=== PATIENT | female | born 1975 | race Caucasian/White ===

== ENCOUNTER 2018-12-31 17:48 | Emergency (ER) | payer MEDICAID ==
[~2018-12-31] VITALS: Ht 172.7 cm; Wt 83.0 kg
--- NOTE | ~2018-12-31 | EKG ---
[place], [place] ELECTROCARDIOGRAM REPORT NAME: ODIN DALE UNIT #: [id number] ROOM: DOCTOR: EPIPHANY DRAFT REPORT BIRTHDATE: [birth year] [facility] Test Date: 2018-12-31 Test Time: 18:41:56 Pat Name: ODIN DALE Department: Room: Gender: F Records Analyst: : 1975 Requested By: KRISTA BARCENAS PA-C Order Number: [id number] Reading MD: Bruce Kirby MD Measurements Intervals [place] Rate: 100 P: 61 IA: 151 QRS: 48 QRSD: 73 T: 22 QT: 327 QTc: 422 Interpretive Statements Sinus tachycardia Probable left atrial enlargement Electronically Signed On 01-06-2019 7:17:22 PDT by Bruce Kirby MD CM:EKGRPT:ELECTROCARDIOGRAM REPORT [id number] KRISTA BARCENAS PA-C EPIPHANY DRAFT REPORT KRISTA BARCENAS PA-C
[2018-12-31 18:46] LABS: BASO % 0.3 % (0.0-1.0); EOS # 0.3 10*3/uL (0.0-0.4); EOS % 3.7 % (1.0-4.0); HEMATOCRIT 37.1 % (37.0-47.0); LYMPH % 24.7 % (27.0-41.0); MEAN CELL VOLUME 91.2 fl (81.0-99.0); MEAN CORPUSCULAR HGB 29.5 pg (27.0-31.0); MEAN CORPUSCULAR HGB CONC 32.3 g/dl (33.0-37.0); MEAN PLATELET VOLUME 9.5 fl (9.6-12.3); MONO # 0.5 10*3/uL (0.1-1.0); MONO % 6.6 % (3.0-9.0); NEUT # 5.1 10*3/uL (2.3-7.9); NEUT % 64.4 % (47.0-73.0); PLATELET COUNT AUTOMATED 228 10*3/uL (130-400); RED BLOOD COUNT 4.07 10*6/uL (4.10-5.10); RED CELL DISTRI WIDTH 13.1 % (0-14.5); WHITE BLOOD COUNT 7.9 10*3/uL (4.8-10.8)
[2018-12-31 19:04] LABS: ALBUMIN 3.1 gm/dl (3.1-4.5); ALKALINE PHOSPHATASE 97 U/L (45-117); BUN 4 mg/dl (7-24); CHLORIDE 106 mmol/L (98-107); POTASSIUM 3.6 mmol/L (3.5-5.1); SGOT/AST 8 IU/L (3-35); SGPT/ALT 11 U/L (12-78); SODIUM 139 mmol/L (136-145); TOTAL PROTEIN 6.5 gm/dL (6.4-8.2)
[2018-12-31 19:07] LABS: TROPONIN I < 0.015 ng/ml (<0.045)
[2018-12-31] MEDS ORDERED: DELTASONE20 M1 PO (23:03)
[2018-12-31] MEDS ORDERED: TESSALON PERLE100 MG PO (23:03)
[2018-12-31] MEDS ORDERED: PROVENTIL HFA6.7 GM INH (23:03)
[2018-12-31] MEDS ORDERED: AVPAK AZITHROM250 MG PO (23:03)
== END 2018-12-31 23:22 | disposition home or self-care (01) ==
LOC: ED 17:48
PROVIDERS: Physician Assistant
DX: J20.9 Acute bronchitis, unspecified (principal); I50.9 Heart failure, unspecified; R11.10 Vomiting, unspecified; Z88.0 Allergy status to penicillin; Z88.6 Allergy status to analgesic agent; Z91.040 Latex allergy status; Z90.49 Acquired absence of other specified parts of digestive tract; Z98.51 Tubal ligation status

== ENCOUNTER 2019-01-06 21:09 | Inpatient (IN) | payer MEDICAID ==
[~2019-01-06] VITALS: Ht 172.7 cm; Wt 93.2 kg
[~2019-01-06 21:09] MED LIST: AVPAK AZITHROM250 MG PO; DELTASONE20 M1 PO; PROVENTIL HFA6.7 GM INH; TESSALON PERLE100 MG PO
[2019-01-06 21:12] VITALS: BP 119/77
[2019-01-06 22:05] LABS: BASO % 0.2 % (0.0-1.0); EOS # 0.1 10*3/uL (0.0-0.4); EOS % 0.6 % (1.0-4.0); HEMATOCRIT 36.1 % (37.0-47.0); HEMOGLOBIN 11.7 g/dl (12.0-16.0); LYMPH # 2.7 10*3/uL (1.3-4.4); LYMPH % 21.5 % (27.0-41.0); MEAN CELL VOLUME 91.6 fl (81.0-99.0); MEAN CORPUSCULAR HGB 29.7 pg (27.0-31.0); MEAN CORPUSCULAR HGB CONC 32.4 g/dl (33.0-37.0); MEAN PLATELET VOLUME 9.4 fl (9.6-12.3); MONO # 1.3 10*3/uL (0.1-1.0); MONO % 10.1 % (3.0-9.0); NEUT # 8.5 10*3/uL (2.3-7.9); PLATELET COUNT AUTOMATED 248 10*3/uL (130-400); RED BLOOD COUNT 3.94 10*6/uL (4.10-5.10); RED CELL DISTRI WIDTH 13.1 % (0-14.5); WHITE BLOOD COUNT 12.6 10*3/uL (4.8-10.8)
--- NOTE | 2019-01-06 22:13 | NUR ---
MEDICATED PER ORDERS. BLANKET PROVIDED AND DENIES ANY ADDITIONAL NEEDS. REMAINS AT BASELINE. WILL MONITOR.
[2019-01-06 22:19] LABS: ACT PARTIAL THROMBO TIME 28.7 SECONDS (20.0-32.1); INTERNATIONAL NORM RATIO 1.1 (2.0-3.5)
[2019-01-06 22:21] LABS: ALBUMIN 2.8 gm/dl (3.1-4.5); ALKALINE PHOSPHATASE 99 U/L (45-117); BUN 8 mg/dl (7-24); CHLORIDE 101 mmol/L (98-107); LIPASE 79 U/L (73-393); POTASSIUM 3.2 mmol/L (3.5-5.1); SGOT/AST 17 IU/L (3-35); SGPT/ALT 16 U/L (12-78); SODIUM 134 mmol/L (136-145)
[2019-01-06 22:23] LABS: TROPONIN I < 0.015 ng/ml (<0.045)
--- NOTE | 2019-01-06 23:05 | NUR ---
NURSE TO NURSE TO EZEQUIEL STONE.
--- NOTE | 2019-01-06 23:08 | NUR ---
REPORT FROM ROSAMARIA NIEVES AT THIS TIME
[2019-01-07 00:15] VITALS: BP 131/68
--- NOTE | 2019-01-07 00:15 | NUR ---
A 43, admitted to 5E, under the services of CATHERINE Azul DO with a diagnosis of SEPSIS. Chief complaint is SOB; COUGH; CONGESTION. Patient arrived via stretcher from ER. Monitor applied. Initial assessment completed. Vital signs taken and recorded. CATHERINE AZUL DO notified of admission to the unit. Orders received. See assessment for past medical history, medications and allergies. Patient and/or family oriented to unit. [facility] visitation policy reviewed. Clothing/patient valuable form completed. NASIMA GARCIA
--- NOTE | 2019-01-07 00:54 | NUR ---
MEDICATED WITH 2 TYLENOL FOR C/O RIB PAIN FROM COUGHING.
--- NOTE | 2019-01-07 06:00 | NUR ---
RESTING IN BED WITH EYES CLOSED. VOICES NO FURTHER C/O AT THIS TIME. CALL LIGHT WITHIN REACH.
[2019-01-07 06:27] LABS: BASO % 0.1 % (0.0-1.0); HEMATOCRIT 34.6 % (37.0-47.0); LYMPH # 0.8 10*3/uL (1.3-4.4); MEAN CELL VOLUME 91.3 fl (81.0-99.0); MEAN CORPUSCULAR HGB CONC 31.8 g/dl (33.0-37.0); MEAN PLATELET VOLUME 9.4 fl (9.6-12.3); MONO # 0.1 10*3/uL (0.1-1.0); MONO % 1.4 % (3.0-9.0); NEUT # 6.6 10*3/uL (2.3-7.9); PLATELET COUNT AUTOMATED 232 10*3/uL (130-400); RED BLOOD COUNT 3.79 10*6/uL (4.10-5.10); RED CELL DISTRI WIDTH 13.1 % (0-14.5); WHITE BLOOD COUNT 7.6 10*3/uL (4.8-10.8)
[2019-01-07 06:48] LABS: ALBUMIN 2.6 gm/dl (3.1-4.5); CHLORIDE 106 mmol/L (98-107); POTASSIUM 3.4 mmol/L (3.5-5.1); SODIUM 138 mmol/L (136-145)
[2019-01-07 06:59] LABS: ALKALINE PHOSPHATASE 86 U/L (45-117); BUN 8 mg/dl (7-24); CHOLESTEROL 112 mg/dL (<200); CREATININE 0.49 mg/dL (0.55-1.02); FREE T4 1.31 ng/dl (0.76-1.46); HDL CHOLESTEROL 29 mg/dl (40-60); LDL CHOLESTEROL 71 mg/dL (9-159); PHOSPHOROUS 2.2 mg/dL (2.5-4.9); SGOT/AST 13 IU/L (3-35); SGPT/ALT 14 U/L (12-78); THYROID STIM HORMONE (HS) 0.254 uIU/ml (0.358-4.75); TOTAL PROTEIN 5.8 gm/dL (6.4-8.2); TRIGLYCERIDES 62 mg/dl (<150); VLDL CHOLESTEROL 12 mg/dL (6-40)
[2019-01-07 07:37] LABS: ACT PARTIAL THROMBO TIME 29.8 SECONDS (20.0-32.1); INTERNATIONAL NORM RATIO 1.1 (2.0-3.5)
[2019-01-07 08:00] VITALS: BP 122/71
--- NOTE | 2019-01-07 08:30 | NUR ---
NORCO FOR RIGHT SIDE PAIN + LIDOCAINE PATCH FOR THE SAME PT NOW NPO FOR CTA
[2019-01-07 09:11] VITALS: BP 110/52
[2019-01-07 12:00] VITALS: BP 117/63
--- NOTE | 2019-01-07 12:34 | NUR ---
Motion Picture Printer in to talk to patient. Patient states lives at HOME with ALONE. There are NO steps in the home. Physician: MARK SAINI Pharmacy: [facility] health services: NONE Patient's level of ADLs: INDEPENDENT Patient has working utilities: YES DME: NONE Follow-up physician's appointment after d/c: WILL BE MADD BY HOSPITALIST NURSE DIRECTOR ON DISCHARGE Does patient want to access PORTAL?: NO Discharge plan PT LIVES AT HOME ALONE AND STATES SHE IS INDEPENDENT IN HER CARE. STATES SHE WILL HAVE NO NEEDS ON DISCHARGE. PT WILL RETURN HOME WHEN MEDICALLY STABLE. WILL CONTINUE TO FOLLOW. STATES SHE WILL HAVE A RIDE HOME.. CYRIL PALACIOS
[2019-01-07 16:00] VITALS: BP 127/70
--- NOTE | 2019-01-07 18:21 | NUR ---
DR MATIAS IN TO SEE PT
--- NOTE | 2019-01-07 18:22 | NUR ---
SLEEPING QUIETLY IN BED
[2019-01-07 20:00] VITALS: BP 124/56
--- NOTE | 2019-01-07 21:30 | NUR ---
CALLED MACHINE GUN MECHANIC PATIENT UPSET AND CRYING WANTED HILL TO COME VISIT HER BECAUSE SHE WAS TOLD HE COULD. PT. STATED "HOSPITALS FREAK ME OUT AND 3 WEEKS AGO MY 21 YEAR OLD SON IN MY ARMS AND I'M SO UPSET". HILL WAS CLEARED TO VISIT FOR 1/2 HOUR BY NURSING MACHINE GUN MECHANIC. SECURITY AND ER REGISTRATION NOTIFIED OF THIS.
--- NOTE | 2019-01-07 21:43 | NUR ---
NORCO AND RESTORIL GIVEN PER PATIENT REQUEST FOR PAIN AT AN 8/10 AND INSOMNIA. WILL ASSESS FOR EFFECTIVENESS.
--- NOTE | 2019-01-07 22:30 | NUR ---
PRN MEDICATIONS EFFECTIVE PER PATIENT.
[2019-01-08] VITALS: BP 116/61
--- NOTE | 2019-01-08 01:12 | NUR ---
24 HR chart check completed.
--- NOTE | 2019-01-08 01:36 | NUR ---
ATIVAN GIVEN PER PATIENT REQUEST FOR ANXIETY. WILL ASSESS FOR EFFECTIVENESS.
--- NOTE | 2019-01-08 01:50 | NUR ---
PATIENT TOOK OFF HER MONITOR AND UNHOOKED HERSELF FROM HER IV FLUIDS, NORMAL SALINE IN ORDER TO "GET WASHED UP" IN THE BATHROOM. WHEN I EXPLAINED TO HER THAT SHE NEEDED TO KEEP HER MONITOR ON SHE STATED "WELL THEY CAN WAIT UNTIL I'M DONE WASHING UP". I EXPLAINED THE RATIONALE FOR THE MONITOR AGAIN AND PATIENT STILL REFUSED TO ALLOW ME TO PUT THE MONITOR BACK ON. PATIENT ALSO UNHOOKED HERSELF FROM HER IV FLUIDS. I EXPLAINED TO HER THE RATIONALE AND THE RISK OF INFECTION FROM NOT HOOKING UP AND UNHOOKING THE TUBING RIGHT. PATIENT STATED SHE UNDERSTOOD, BUT THAT SHE WAS NOT LETTING ME HOOK HER BACK UP UNTIL SHE WAS DONE WASHING UP. I ALSO EXPLAINED THE EFFECTS OF ATIVAN AND THAT IT WOULD BE BEST IF THE PATIENT GOT BACK INTO BED AND SHE STATED SHE WAS FINE AND WOULD CALL ME IF SHE NEEDED HELP. SHE THEN ASKED ME TO LEAVE HER ALONE AND SHUT THE BATHROOM DOOR UNTIL SHE WAS READY. I TOLD HER I WOULD BE OUTSIDE THE DOOR, TO CALL ME WHEN SHE WAS DONE, AND THAT I WOULD BE CHECKING ON HER IN A COUPLE OF MINUTES.
--- NOTE | 2019-01-08 01:57 | NUR ---
CHECKED ON PATIENT AGAIN. SHE STATED SHE WAS "STILL DOING FINE". WHEN ASKED IF SHE NEEDED HELP SHE STATED SHE DID NOT NEED ANY HELP. WILL CONTINUE TO MONITOR.
--- NOTE | 2019-01-08 02:08 | NUR ---
CHECKED ON PATIENT. STILL IN THE BATHROOM. PATIENT IS SITTING ON THE TOILET, BUT NOT CURRENTLY USING IT. SHE STATED SHE WAS STILL GETTING WASHED UP AND REFUSING TO ALLOW ME TO HOOK HER UP TO THE MONITOR OR PUT HER BACK ON HER IV FLUIDS. PATIENT KEPT CLOSING HER EYES WHEN TALKING TO ME AND WOULD NOT ALLOW ME TO HELP HER BACK TO BED OR TO GET DRESSED.
--- NOTE | 2019-01-08 02:34 | NUR ---
PATIENT STILL IN BATHROOM. STILL REFUSING TO LET ANY STAFF HELP HER GET DRESSED OR TO HER BED. STILL REFUSING TO BE HOOKED BACK UP TO HER IV FLUIDS. WILL CONTINUE TO MONITOR.
--- NOTE | 2019-01-08 03:23 | NUR ---
HELPED PATIENT BACK TO BED. MONITOR AND IV FLUIDS HOOKED BACK UP. PATIENT RESTING IN BED. HR 93. BED LOCKED AND IN LOWEST POSITION. SIDE RAILS UP X2. CALL LIGHT WITHIN REACH.
[2019-01-08 06:22] LABS: BASO % 0.1 % (0.0-1.0); HEMATOCRIT 33.3 % (37.0-47.0); HEMOGLOBIN 10.4 g/dl (12.0-16.0); LYMPH # 1.2 10*3/uL (1.3-4.4); LYMPH % 9.5 % (27.0-41.0); MEAN CELL VOLUME 92.8 fl (81.0-99.0); MEAN CORPUSCULAR HGB CONC 31.2 g/dl (33.0-37.0); MEAN PLATELET VOLUME 9.8 fl (9.6-12.3); MONO # 0.5 10*3/uL (0.1-1.0); MONO % 3.8 % (3.0-9.0); NEUT # 11.1 10*3/uL (2.3-7.9); NEUT % 85.5 % (47.0-73.0); PLATELET COUNT AUTOMATED 254 10*3/uL (130-400); RED BLOOD COUNT 3.59 10*6/uL (4.10-5.10); RED CELL DISTRI WIDTH 13.1 % (0-14.5)
[2019-01-08 06:50] LABS: BUN 13 mg/dl (7-24); CHLORIDE 107 mmol/L (98-107); CREATININE 0.51 mg/dL (0.55-1.02); POTASSIUM 4.3 mmol/L (3.5-5.1); SODIUM 138 mmol/L (136-145)
[2019-01-08 08:00] VITALS: BP 119/64
--- NOTE | 2019-01-08 09:00 | NUR ---
PT RESTING IN BED WITH EYES CLOSED. AROUSES EASILY. PT DROWSY AT THIS TIME. COOPERATIVE WITH CARE. NO DISTRESS NOTED. NO VOICED COMPLAINTS. VSS. WILL CONTINUE TO MONITOR. CALL LIGHT WITHIN REACH.
--- NOTE | 2019-01-08 11:05 | NUR ---
AWARE OF CONSULT.
[2019-01-08 12:00] VITALS: BP 145/58
--- NOTE | 2019-01-08 12:02 | NUR ---
PT CONTINUES TO STATE SHE WILL HAVE NO NEEDS ON DISCHARGE. CAN BE DISCHARGED TO HOME WHEN MEDICALLY STABLE. WILL CONTINUE TO FOLLOW.
--- NOTE | 2019-01-08 14:15 | NUR ---
PT MEDICATED WITH PO NORCO AND ATIVAN PER PRN ORDER FOR C/O PAIN AND ANXIETY. WILL MONITOR EFFECTIVENESS.
--- NOTE | 2019-01-08 15:41 | NUR ---
Patient resting quietly with no c/o discomfort. Respirations easy and regular. Vital signs stable. No overt distress. ANABEL CUMMINS
[2019-01-08 16:00] VITALS: BP 121/77
[2019-01-08 20:00] VITALS: BP 126/71
--- NOTE | 2019-01-08 20:35 | NUR ---
UP TO SHOWER.
--- NOTE | 2019-01-08 20:50 | NUR ---
CALLED DR. GOLDEN AND SPOKE WITH HIM ABOUT PT. WANTING ANOTHER NERVE PILL. PT. STATED "I DON'T WANT TO SAY I'M SUICIDAL ABOUT MY SONS BUT I'M JUST IN A DARK PLACE RIGHT NOW AND THAT ATIVAN HELPED ME ALOT.". DR. GOLDEN ORDERED ATIVAN 1 MG PO X1.
--- NOTE | 2019-01-08 22:23 | NUR ---
Ativan given per order for anxiety. see mar
--- NOTE | 2019-01-08 23:20 | NUR ---
NORCO GIVEN PER ORDER FOR PAIN PER PT. REQUEST. PT. SITTING ON SIDE OF BED. ATIVAN EFFECTIVE FOR ANXIETY.
[2019-01-09] VITALS: BP 147/85
--- NOTE | 2019-01-09 00:05 | NUR ---
NORCO GIVEN PER ORDER FOR RIGHT SIDE PAIN RATED 8/10. LIDOCAINE PATCH INTACT. Hep Lock discontinued. Site symptomatic painful. Pressure applied. Sterile dressing applied. IV started right forearm with #22 angiocath after 1st attempts. The IV site was prepped with Chloraprep. Heparin lock attached. Sterile dressing applied. Patient tolerated precedure well. Procedure performed according to [facility] policy & procedure. MARYBETH LAU
--- NOTE | 2019-01-09 01:27 | NUR ---
24 HR chart check completed.
--- NOTE | 2019-01-09 02:54 | NUR ---
SLEEPING SITTING UP IN BED WITH PHONE IN HAND. ENCOURAGED TO LAY DOWN BUT INSISTED ON STILL SITTING UP.
--- NOTE | 2019-01-09 05:56 | NUR ---
PT. SITTING UP IN BED, EYES CLOSED BUT REPEATING CONVERSATION FROM THE NEXT BED. PT. STATED "I'M STILL HAVEN'T SLEPT. I FEEL SO ANXIOUS LIKE I'M GOING TO HAVE A HEARTATTACK." SPOKE WITH DR. GOLDEN AND ORDER RECEIVED.
--- NOTE | 2019-01-09 06:19 | NUR ---
ATIVAN GIVEN PER ORDER FOR ANXIETY. SEE MAR.
[2019-01-09 06:43] LABS: HEMATOCRIT 36.1 % (37.0-47.0); HEMOGLOBIN 11.3 g/dl (12.0-16.0); MEAN CELL VOLUME 92.3 fl (81.0-99.0); MEAN CORPUSCULAR HGB 28.9 pg (27.0-31.0); MEAN CORPUSCULAR HGB CONC 31.3 g/dl (33.0-37.0); MEAN PLATELET VOLUME 9.6 fl (9.6-12.3); NUCLEATED RED BLOOD CELL 0.2 % (0.0-0.0); PLATELET COUNT AUTOMATED 318 10*3/uL (130-400); RED BLOOD COUNT 3.91 10*6/uL (4.10-5.10); RED CELL DISTRI WIDTH 13.1 % (0-14.5); WHITE BLOOD COUNT 9.8 10*3/uL (4.8-10.8)
[2019-01-09 06:56] LABS: BUN 14 mg/dl (7-24); CHLORIDE 104 mmol/L (98-107); CREATININE 0.62 mg/dL (0.55-1.02); POTASSIUM 4.3 mmol/L (3.5-5.1); SODIUM 137 mmol/L (136-145)
[2019-01-09 07:18] LABS: BURR CELLS FEW; OVALOCYTES FEW; PLATELET SUFFICIENCY NORMAL (NORMAL); POLYCHROMASIA SLIGHT; TOTAL CELLS COUNTED 100 #CELLS
[2019-01-09 08:00] VITALS: BP 139/81
--- NOTE | 2019-01-09 08:16 | NUR ---
U NOTIFIED REGARDING CONSULT.
--- NOTE | 2019-01-09 08:34 | NUR ---
PT REQUESTED PO NORCO PER PRN ORDER FOR C/O RIGHT BACK PAIN. RATES PAIN 11/09. WILL MONITOR EFFECTIVENESS. VSS.
--- NOTE | 2019-01-09 09:45 | NUR ---
NORCO RELIEVING PAIN PER PT. WILL CONTINUE TO MONITOR.
--- NOTE | 2019-01-09 11:20 | NUR ---
Patient instructed on flutter valve. Great effort.
[2019-01-09 12:00] VITALS: BP 125/75; BP 139/81; BP 143/56
--- NOTE | 2019-01-09 12:40 | NUR ---
PT CONTINUES TO DENY SHE WILL HAVE NEEDS ON DISCHARGE. WILL CONTINUE TO FOLLOW.
--- NOTE | 2019-01-09 13:05 | NUR ---
PT MEDICATED WITH PO ATARAX AND NORCO PER PRN ORDER FOR C/O ANXIETY AND BACK PAIN. WILL MONITOR EFFECTIVENESS.
--- NOTE | 2019-01-09 14:30 | NUR ---
EARLIER MEDS EFFECTIVE AT THIS TIME. WILL CONTINUE TO MONITOR.
[2019-01-09 16:00] VITALS: BP 123/61
[2019-01-09 20:00] VITALS: BP 125/81
--- NOTE | 2019-01-09 20:07 | NUR ---
pt. had showered and pulled lidocaine patch off. this was replaced.
--- NOTE | 2019-01-09 20:25 | NUR ---
pt. dropped vistaril and norco on floor, both wsted with 2nd RN Berto Bradford.
--- NOTE | 2019-01-09 20:28 | NUR ---
ATIVAN AND NORCO GIVEN FOR ANXIETY AND RIGHT SIDED PAIN RATED "8/10". SEE MAR
--- NOTE | 2019-01-09 21:30 | NUR ---
Bagley and vistaril effective for pain and anxiety at this time per pt.
[2019-01-10] VITALS (9 sets, daily range): BP systolic 104–141; BP diastolic 61–76
--- NOTE | 2019-01-10 00:05 | NUR ---
[place] given per order for right side pain rated 8/10. Lidocaine patch initact. HEPLOCK DISCONTINUED. SITE SYMPTOMATIC PAINFUL. PRESSURE APPLIED. STERILE DRESSING APPLIED. IV started right forearm with #22 angiocath after 1 attempts. The IV site was prepped with Chloraprep. Heparin lock attached. IV solution infusing at cc/hr. Sterile dressing applied. Patient tolerated precedure well. Procedure performed according to [facility] policy & procedure. MARYBETH LAU J
--- NOTE | 2019-01-10 01:00 | NUR ---
NORCO EFFECTIVE FOR PAIN DECREASED TO 5/10
--- NOTE | 2019-01-10 02:28 | NUR ---
ATARAX GIVEN PER ORDER FOR ANXIETY. TIRED TO REMOVE PT. FOOD AND DRINK BECAUSE NPO FOR BRONCHOSCOPE THIS AM PATIENT YELLED AT THE AID SAYS "DON'T TOUCH MY STUFF. I'M A GROWN WOMEN AND KNOW I SHOULDN'T BE EATING OR DRINKING." FOOD AND DRINK LEFT AT BEDSIDE.
--- NOTE | 2019-01-10 03:30 | NUR ---
ATARAX EFFECTIVE FOR ANXIETY PATIENT SLEEPING.
[2019-01-10 06:43] LABS: HEMATOCRIT 36.7 % (37.0-47.0); HEMOGLOBIN 11.7 g/dl (12.0-16.0); MEAN CELL VOLUME 92.4 fl (81.0-99.0); MEAN CORPUSCULAR HGB 29.5 pg (27.0-31.0); MEAN CORPUSCULAR HGB CONC 31.9 g/dl (33.0-37.0); MEAN PLATELET VOLUME 10.1 fl (9.6-12.3); PLATELET COUNT AUTOMATED 299 10*3/uL (130-400); RED BLOOD COUNT 3.97 10*6/uL (4.10-5.10); RED CELL DISTRI WIDTH 13.2 % (0-14.5); WHITE BLOOD COUNT 12.2 10*3/uL (4.8-10.8)
[2019-01-10 06:54] LABS: BUN 14 mg/dl (7-24); CHLORIDE 107 mmol/L (98-107); CREATININE 0.58 mg/dL (0.55-1.02); PHOSPHOROUS 3.1 mg/dL (2.5-4.9); POTASSIUM 4.1 mmol/L (3.5-5.1); SODIUM 139 mmol/L (136-145)
--- NOTE | 2019-01-10 07:00 | NUR ---
SLEEPING NO ACUTE DISTRESS NOTED.
[2019-01-10 08:16] LABS: TOTAL CELLS COUNTED 100 #CELLS
[2019-01-10 08:17] LABS: OVALOCYTES FEW; PLATELET SUFFICIENCY NORMAL (NORMAL)
--- NOTE | 2019-01-10 08:27 | NUR ---
PT JESSY FOR BRONCH
--- NOTE | 2019-01-10 11:16 | NUR ---
PT DENIES NEEDS AT HOME ON DISCHARGE. DR TOWNSEND PROVIDED NUMBERS FOR PT TO CALL TO FOLLOW UP OUT PT FOR DEPRESSION. WILL CONTINUE TO FOLLOW.
--- NOTE | 2019-01-10 16:47 | NUR ---
PT STATES THAT VISTARIL NOT HELPING FOR ANXIETY, NOTIFIED DR. SWAN, NO NEW ORDERS AT THIS TIME
--- NOTE | 2019-01-10 18:24 | NUR ---
PT STATES NORCO/ANXIETY MEDICATION "NOT VERY HELPFUL". AWARE NO OTHER MEDICATIONS AVAILABLE
--- NOTE | 2019-01-10 19:15 | NUR ---
ARRIVED ON SHIFT, PATIENT SLEEPING, REPORT RECEIVED, WHITE BOARD UPDATED.
--- NOTE | 2019-01-10 20:10 | NUR ---
24 HR chart check completed.
--- NOTE | 2019-01-10 21:36 | NUR ---
MEDICATED WITH NORCO FOR GENERALIZED PAIN 6/10 AND RESTORIL FOR INABILITY TO SLEEP,
--- NOTE | 2019-01-10 22:36 | NUR ---
PATIENT CONTINUES TO HAVE GENERALIZED PAIN, DECREASED SLIGHTLY TO 4/10, NO EFFECT FROM RESTORIL.
[2019-01-11] VITALS: BP 135/79
--- NOTE | 2019-01-11 03:05 | NUR ---
MEDICATED WITH NORCO FOR GENERAILZED PAIN WITH PAIN RATING 6/10, ALSO HAVING DRY FORCEFUL COUGH, REQUESTED HER SERGIO.
--- NOTE | 2019-01-11 03:10 | NUR ---
MEDICATED WITH TESSELON FOR COUGH.
--- NOTE | 2019-01-11 04:05 | NUR ---
Good effect from [place] and Tesselon given, as evidenced by patient resting quietly with eyes closed, resperations easy and non-labored. bed in low position, [place] up X2. [place] on, call light within reach. KELLEY GARCIA
[2019-01-11 06:39] LABS: HEMATOCRIT 37.3 % (37.0-47.0); HEMOGLOBIN 11.6 g/dl (12.0-16.0); MEAN CELL VOLUME 91.6 fl (81.0-99.0); MEAN CORPUSCULAR HGB 28.5 pg (27.0-31.0); MEAN CORPUSCULAR HGB CONC 31.1 g/dl (33.0-37.0); MEAN PLATELET VOLUME 9.3 fl (9.6-12.3); NUCLEATED RED BLOOD CELL 0.2 % (0.0-0.0); PLATELET COUNT AUTOMATED 344 10*3/uL (130-400); RED BLOOD COUNT 4.07 10*6/uL (4.10-5.10); RED CELL DISTRI WIDTH 13.2 % (0-14.5); WHITE BLOOD COUNT 12.1 10*3/uL (4.8-10.8)
[2019-01-11 07:02] LABS: BUN 16 mg/dl (7-24); CHLORIDE 104 mmol/L (98-107); CREATININE 0.53 mg/dL (0.55-1.02); SODIUM 140 mmol/L (136-145)
[2019-01-11 07:36] LABS: PLATELET SUFFICIENCY NORMAL (NORMAL); TOTAL CELLS COUNTED 100 #CELLS
--- NOTE | 2019-01-11 07:58 | NUR ---
PATIENT C/O RIGHT RIB AREA PAIN. RATE 8/10 ON PAIN SCALE. MEDICATED WITH NORCO PER PRN ORDER. WILL CONTINUE TO MONITOR.
[2019-01-11 08:00] VITALS: BP 145/82
--- NOTE | 2019-01-11 09:01 | NUR ---
PATIENT C/O ANXIETY. MEDICATED WITH VISTRAIL PER PRN ORDER. WILL CONTINUE TO MONITOR.
[2019-01-11 12:00] VITALS: BP 131/76
--- NOTE | 2019-01-11 12:21 | NUR ---
PATIENT C/O PAIN TO RIGHT SIDE RIB AREA. MEDICATED WITH NORCO PER PRN ORDER.
[2019-01-11 13:07] LABS: ACID FAST SPEC PROCESSING Concentration (.)
[2019-01-11 16:00] VITALS: BP 130/74
--- NOTE | 2019-01-11 19:05 | NUR ---
ARRIVED ON SHIFT, INTRODUCED TO PATIENT, BEDSIDE REPORT RECEIVED, WHITE BOARD UPDATED, NO NEEDS VOICED AT THIS TIME.
[2019-01-11 20:00] VITALS: BP 153/84
--- NOTE | 2019-01-11 20:03 | NUR ---
24 HR chart check completed.
--- NOTE | 2019-01-11 21:09 | NUR ---
C/O RIGHT FLANK PAIN MEDICATED WITH NORCO ORDERED PAIN 10/09
--- NOTE | 2019-01-11 22:03 | NUR ---
PATIENT REPORTS MINIMAL EFFECT FROM NORCO GIVEN X 1 HOUR AGO
--- NOTE | 2019-01-11 23:11 | NUR ---
MEDICATED WITH VISTARIL AND TEMAZEPAM ORDERED PER PATIENT REQUEST
[2019-01-12] VITALS: BP 130/70
--- NOTE | 2019-01-12 00:06 | NUR ---
GOOD EFFECT FROM VISTRIL AND RESTORIL GIVEN X 1 HOUR AGO EVIDENCED BY PATIENT RESTING QUIETLY WITH EYES CLOSED.
--- NOTE | 2019-01-12 04:25 | NUR ---
PATIENT C/O FLANK PAIN AND HAS LOOSE NON-PRODUCTIVE COUGH MEDICATED WITH TESSELON PERLES AND NORCO ORDERED.
--- NOTE | 2019-01-12 05:23 | NUR ---
Good effect from Tashi and Gabriela, as patient is resting quietly, respirations realxed and easy. Bed in lowest position, side rails up x 2, wheels locked, call light within reach. KELLEY GARCIA
[2019-01-12 06:23] LABS: HEMATOCRIT 36.4 % (37.0-47.0); HEMOGLOBIN 11.4 g/dl (12.0-16.0); MEAN CELL VOLUME 93.6 fl (81.0-99.0); MEAN CORPUSCULAR HGB 29.3 pg (27.0-31.0); MEAN CORPUSCULAR HGB CONC 31.3 g/dl (33.0-37.0); MEAN PLATELET VOLUME 9.4 fl (9.6-12.3); PLATELET COUNT AUTOMATED 347 10*3/uL (130-400); RED BLOOD COUNT 3.89 10*6/uL (4.10-5.10); RED CELL DISTRI WIDTH 13.4 % (0-14.5); WHITE BLOOD COUNT 15.6 10*3/uL (4.8-10.8)
[2019-01-12 06:53] LABS: BUN 17 mg/dl (7-24); CHLORIDE 103 mmol/L (98-107); CREATININE 0.61 mg/dL (0.55-1.02); POTASSIUM 4.2 mmol/L (3.5-5.1); SODIUM 140 mmol/L (136-145)
[2019-01-12 06:54] LABS: PLATELET SUFFICIENCY NORMAL (NORMAL); TOTAL CELLS COUNTED 100 #CELLS
[2019-01-12 08:00] VITALS: BP 125/84
[2019-01-12 12:00] VITALS: BP 130/78
[2019-01-12] MEDS ORDERED: MUCINEX DM 30/61 TAB PO (13:06)
[2019-01-12] MEDS ORDERED: LORAZEPAM0.5 MG PO (13:06)
[2019-01-12] MEDS ORDERED: DULOXETINE HCL30 MG PO (13:06)
[2019-01-12] MEDS ORDERED: VITAMIN B-12100 MCG PO (13:06)
[2019-01-12] MEDS ORDERED: VITAMIN D32000 UNI1 PO (13:06)
[2019-01-12] MEDS ORDERED: LEVAQUIN500 M2 PO (13:10)
[2019-01-12] MEDS ORDERED: PREDNISONE10 MG PO (13:10)
--- NOTE | 2019-01-12 14:15 | NUR ---
PATIENT DISCHARGED TO HOME. ALL PERSONAL BELONGINGS SENT WITH PATIENT. IV DISCONTINUED. DISCHARGE INSTRUCTIONS GIVEN AND REVEIEWED WITH PATIENT. PRESCRIPTION GIVEN TO PATIENT AND INFORMED OF OTHER PRESCRIPTIONS SENT TO [facility] [place].
[2019-02-07 22:06] LABS: M AVIUM COMPLEX Positive (.); M GORDONAE Not Indicated (.); M KANSASII Not Indicated (.); M TUBERCULOSIS COMPLEX Negative (.)
[2019-02-10 07:15] LABS: ACID FAST CULTURE Positive (.)
[2019-02-19 12:07] LABS: ORGANISM ID, MOLD Preliminary report (.)
== END 2019-01-12 14:25 | disposition home or self-care (01) | DRG 720 ==
LOC: ED 21:09 → EDHOLD 22:58 → 5E 22:58
PROVIDERS: Internal Medicine; Internal Medicine Critical Care Medicine; Physician Assistant; ADMIT Internal Medicine
PROC: 0BC28ZZ Extirpation of Matter from Carina, Via Natural or Artificial Opening Endoscopic (ICD-10-PCS; principal; 2019-01-10)
PROC: 0BC18ZZ Extirpation of Matter from Trachea, Via Natural or Artificial Opening Endoscopic (ICD-10-PCS; 2019-01-10)
PROC: 0BC98ZZ Extirpation of Matter from Lingula Bronchus, Via Natural or Artificial Opening Endoscopic (ICD-10-PCS; 2019-01-10)
PROC: 0BC48ZZ Extirpation of Matter from Right Upper Lobe Bronchus, Via Natural or Artificial Opening Endoscopic (ICD-10-PCS; 2019-01-10)
PROC: 0BC88ZZ Extirpation of Matter from Left Upper Lobe Bronchus, Via Natural or Artificial Opening Endoscopic (ICD-10-PCS; 2019-01-10)
PROC: 0BC58ZZ Extirpation of Matter from Right Middle Lobe Bronchus, Via Natural or Artificial Opening Endoscopic (ICD-10-PCS; 2019-01-10)
PROC: 0BC38ZZ Extirpation of Matter from Right Main Bronchus, Via Natural or Artificial Opening Endoscopic (ICD-10-PCS; 2019-01-10)
PROC: 0BC78ZZ Extirpation of Matter from Left Main Bronchus, Via Natural or Artificial Opening Endoscopic (ICD-10-PCS; 2019-01-10)
PROC: 0BC68ZZ Extirpation of Matter from Right Lower Lobe Bronchus, Via Natural or Artificial Opening Endoscopic (ICD-10-PCS; 2019-01-10)
PROC: 0BCB8ZZ Extirpation of Matter from Left Lower Lobe Bronchus, Via Natural or Artificial Opening Endoscopic (ICD-10-PCS; 2019-01-10)
DX: A41.9 Sepsis, unspecified organism (principal); J18.9 Pneumonia, unspecified organism; J20.9 Acute bronchitis, unspecified; E43 Unspecified severe protein-calorie malnutrition; E87.1 Hypo-osmolality and hyponatremia; R73.9 Hyperglycemia, unspecified; D64.9 Anemia, unspecified; E87.6 Hypokalemia; J44.1 Chronic obstructive pulmonary disease with (acute) exacerbation; E83.39 Other disorders of phosphorus metabolism; F32.9 Major depressive disorder, single episode, unspecified; F43.10 Post-traumatic stress disorder, unspecified; F41.1 Generalized anxiety disorder; E66.9 Obesity, unspecified; E53.8 Deficiency of other specified B group vitamins; J44.0 Chronic obstructive pulmonary disease with (acute) lower respiratory infection; Z88.0 Allergy status to penicillin; Z88.6 Allergy status to analgesic agent; Z91.040 Latex allergy status; Z98.51 Tubal ligation status; Z71.6 Tobacco abuse counseling; Z79.1 Long term (current) use of non-steroidal anti-inflammatories (NSAID); Z87.891 Personal history of nicotine dependence; Z68.31 Body mass index [BMI] 31.0-31.9, adult

== ENCOUNTER 2019-02-07 19:54 | Emergency (ER) | payer MEDICAID ==
[~2019-02-07] VITALS: Ht 172.7 cm; Wt 71.7 kg
[~2019-02-07 19:54] MED LIST changes: +DULOXETINE HCL30 MG PO; +LEVAQUIN500 M2 PO; +LORAZEPAM0.5 MG PO; +MUCINEX DM 30/61 TAB PO; +PREDNISONE10 MG PO; +VITAMIN B-12100 MCG PO; +VITAMIN D32000 UNI1 PO
[2019-02-07 20:43] LABS: BILIRUBIN NEGATIVE (NEGATIVE); BLOOD NEGATIVE (NEGATIVE); CLARITY CLEAR (CLEAR); COLOR YELLOW (YELLOW); GLUCOSE NEGATIVE (NEGATIVE); KETONE NEGATIVE (NEGATIVE); LEUKO ESTERASE NEGATIVE (NEGATIVE); NITRITE POSITIVE (NEGATIVE); SPECIFIC GRAVITY 1.015 (1.005-1.030); UROBILINOGEN 0.2 E.U./dl (0.2-1.0)
[2019-02-07 20:49] LABS: BACTERIA 4+
[2019-02-07 20:51] LABS: URINE AMPHETAMINES < 1000 (1000ng/ml); URINE BARBITURATES < 200 (200ng/ml); URINE BENZODIAZEPINES < 200 (200ng/ml); URINE CANNABINOIDS (THC) < 50 (50ng/ml); URINE COCAINE < 300 (300ng/ml); URINE METHADONE < 300 (300ng/ml); URINE OPIATES < 300 (300ng/ml); URINE PHENCYCLIDINE < 25 (25ng/ml)
[2019-02-07 20:58] LABS: BASO % 0.5 % (0.0-1.0); EOS # 0.1 10*3/uL (0.0-0.4); EOS % 1.4 % (1.0-4.0); HEMOGLOBIN 12.5 g/dl (12.0-16.0); LYMPH # 3.3 10*3/uL (1.3-4.4); LYMPH % 38.6 % (27.0-41.0); MEAN CELL VOLUME 91.3 fl (81.0-99.0); MEAN CORPUSCULAR HGB 29.3 pg (27.0-31.0); MEAN CORPUSCULAR HGB CONC 32.1 g/dl (33.0-37.0); MEAN PLATELET VOLUME 9.4 fl (9.6-12.3); MONO # 0.7 10*3/uL (0.1-1.0); MONO % 7.8 % (3.0-9.0); NEUT # 4.3 10*3/uL (2.3-7.9); NEUT % 51.2 % (47.0-73.0); PLATELET COUNT AUTOMATED 273 10*3/uL (130-400); RED BLOOD COUNT 4.27 10*6/uL (4.10-5.10); RED CELL DISTRI WIDTH 14.1 % (0-14.5); WHITE BLOOD COUNT 8.4 10*3/uL (4.8-10.8)
[2019-02-07 21:12] LABS: ALBUMIN 2.9 gm/dl (3.1-4.5); ALKALINE PHOSPHATASE 99 U/L (45-117); BUN 7 mg/dl (7-24); CHLORIDE 109 mmol/L (98-107); CREATININE 0.76 mg/dL (0.55-1.02); LIPASE 258 U/L (73-393); POTASSIUM 3.2 mmol/L (3.5-5.1); SGOT/AST 12 IU/L (3-35); SGPT/ALT 14 U/L (12-78); SODIUM 140 mmol/L (136-145); TOTAL PROTEIN 6.1 gm/dL (6.4-8.2)
[2019-02-07] MEDS ORDERED: Percocet 325 MG1 TAB PO (23:06)
== END 2019-02-07 23:17 | disposition home or self-care (01) ==
LOC: ED 19:54
PROVIDERS: Emergency Medicine Emergency Medical Services
DX: R10.11 Right upper quadrant pain (principal); R11.0 Nausea; J44.9 Chronic obstructive pulmonary disease, unspecified; F17.200 Nicotine dependence, unspecified, uncomplicated; Z88.0 Allergy status to penicillin; Z88.6 Allergy status to analgesic agent; Z91.040 Latex allergy status

== ENCOUNTER 2019-09-09 15:57 | Emergency (ER) | payer MEDICAID ==
[~2019-09-09] VITALS: Ht 172.7 cm; Wt 81.6 kg
[~2019-09-09 15:57] MED LIST changes: +Percocet 325 MG1 TAB PO
[2019-09-09 16:38] LABS: BASO % 0.5 % (0.0-1.0); EOS # 0.3 10*3/uL (0.0-0.4); EOS % 3.2 % (1.0-4.0); HEMATOCRIT 36.4 % (37.0-47.0); LYMPH # 2.5 10*3/uL (1.3-4.4); LYMPH % 32.3 % (27.0-41.0); MEAN CELL VOLUME 86.5 fl (81.0-99.0); MEAN CORPUSCULAR HGB 27.1 pg (27.0-31.0); MEAN CORPUSCULAR HGB CONC 31.3 g/dl (33.0-37.0); MEAN PLATELET VOLUME 9.4 fl (9.6-12.3); MONO # 0.4 10*3/uL (0.1-1.0); NEUT # 4.5 10*3/uL (2.3-7.9); NEUT % 58.5 % (47.0-73.0); PLATELET COUNT AUTOMATED 462 10*3/uL (130-400); RED BLOOD COUNT 4.21 10*6/uL (4.10-5.10); WHITE BLOOD COUNT 7.7 10*3/uL (4.8-10.8)
[2019-09-09 16:42] LABS: BILIRUBIN NEGATIVE (NEGATIVE); BLOOD NEGATIVE (NEGATIVE); CLARITY CLEAR (CLEAR); COLOR YELLOW (YELLOW); GLUCOSE NEGATIVE (NEGATIVE); KETONE NEGATIVE (NEGATIVE); LEUKO ESTERASE NEGATIVE (NEGATIVE); NITRITE NEGATIVE (NEGATIVE); SPECIFIC GRAVITY 1.015 (1.005-1.030); UROBILINOGEN 0.2 E.U./dl (0.2-1.0)
[2019-09-09 16:47] LABS: RBC 0-2 rbc/hpf (0-2); WBC 0-2 wbc/hpf (0-5)
[2019-09-09 16:48] LABS: BACTERIA 2+; MUCOUS 3+
[2019-09-09 16:50] LABS: ACT PARTIAL THROMBO TIME 25.9 SECONDS (20.0-32.1)
[2019-09-09 17:09] LABS: ALBUMIN 2.8 gm/dl (3.1-4.5); ALKALINE PHOSPHATASE 87 U/L (45-117); BUN 8 mg/dl (7-24); CHLORIDE 108 mmol/L (98-107); CREATININE 0.68 mg/dL (0.55-1.02); LIPASE 104 U/L (73-393); POTASSIUM 3.8 mmol/L (3.5-5.1); SGOT/AST 5 IU/L (3-35); SGPT/ALT 12 U/L (12-78); SODIUM 140 mmol/L (136-145); TOTAL PROTEIN 6.5 gm/dL (6.4-8.2)
== END 2019-09-09 17:30 | disposition left against medical advice (07) ==
LOC: ED 15:57
PROVIDERS: Family Medicine
DX: R10.11 Right upper quadrant pain (principal); Z88.0 Allergy status to penicillin; Z91.040 Latex allergy status; Z79.899 Other long term (current) drug therapy